=== PATIENT | male | born 1975 | race Caucasian/White ===

== ENCOUNTER → 2018-11-19 | Outpatient (CLI) | payer BC | LOC: FIMAGING 14:44 | PROVIDERS: ATTEND Orthopaedic Surgery | DX: M19.011 Primary osteoarthritis, right shoulder (principal); S43.401A Unspecified sprain of right shoulder joint, initial encounter ==

== ENCOUNTER 2019-01-27 05:57 | Inpatient (IN) | payer BC ==
[~2019-01-27 05:57] MED LIST: LIDOCAINE 1% 2 ML INJ ID PRN; LR 1,000 ML IV ONE; LR 1,000 ML IV SCH; ceFAZolin 2 GM/DEXTROSE 100 ML IV ONE
--- NOTE | 2019-01-27 06:07 | PDHPUP ---
History & Physical Update H&P update statement: This history and physical update is based on an assessment of the patient which was completed after admission or registration (within 24 hours), but prior to the surgery/procedure. H&P update: no change in patient's condition since H&P completed
[2019-01-27] MEDS ORDERED: POLYMYXIN B SULFATE 500,000 UNIT/10 ML SYR IRR ONE (06:36)
[2019-01-27] MEDS ORDERED: BUPIVACAINE 0.5% 30 ML SDV ONE (06:36)
[2019-01-27 06:44] LABS: INR 1.3 (0.83-1.16); PROTIME(PATIENT) 15.6 SEC (12.0-15.0)
[2019-01-27] MEDS ORDERED: MIDAZOLAM 2 MG/2 ML VIAL IVP ONE (06:48)
--- NOTE | 2019-01-27 06:48 | PDANEPAE ---
ANE History of Present Illness Shoulder OA ANE Past Medical History - Cardiovascular History Hx Hypertension: Yes Hx Arrhythmias: No Hx Chest Pain: No Hx Coronary Artery / Peripheral Vascular Disease: No Hx CHF / Valvular Disease: No Hx Palpitations: No Cardiovascular History Comment: HAD A RECENT BP ELEVATION - BEING WORKED UP BY DR DIAZ F/U NEXT WEEK TO POSSIBLY START MEDICATION BASED ON BP LOG - Pulmonary History Hx COPD: No Hx Asthma/Reactive Airway Disease: No Hx Recent Upper Respiratory Infection: No Hx Oxygen in Use at Home: No Hx Sleep Apnea: No Sleep Apnea Screening Result - Last Documented: Negative Pulmonary History Comment: CHILDHOOD ASTHMA - Neurologic History Hx Cerebrovascular Accident: No Hx Seizures: No Hx Dementia: No - Endocrine History Hx Diabetes: No - Renal History Hx Renal Disorders: No - Liver History Hx Hepatic Disorders: No - Neurological & Psychiatric Hx Hx Neurological and Psychiatric Disorders: No - Cancer History Hx Cancer: No - Congenital Disorder History Hx Congenital Disorders: No - GI History Hx Gastrointestinal Disorders: No - Other Health History Other Health History: NEG - Chronic Pain History Chronic Pain: Yes (R SHOULDER) - Surgical History Prior Surgeries: NEG ANE Review of Systems Review of Systems: - Exercise capacity METS (RN): 5 METS ANE Patient History - Allergies Allergies/Adverse Reactions: lisinopril Allergy (Verified 01/23/19 17:33) face swelling - Home Medications Home medications: home medication list seen and reviewed Home Medications: Ibuprofen [Motrin (*)] 200 mg PO Q8HRS PRN 01/10/19 [Last Taken 01/20/19] Indomethacin [Indocin 25 mg (*)] 25 mg PO DAILY PRN 01/10/19 [Last Taken ] Metoprolol Succinate 01/27/19 [Last Taken 01/26/19 09:00] - NPO status NPO Since - Liquids (Date): 01/27/19 NPO Since - Liquids (Time): 02:00 NPO Since - Solids (Date): 01/26/19 NPO Since - Solids (Time): 18:00 - Anes Hx Anes Hx: no prior problems (No prior GA) - Smoking Hx Smoking Status: Former smoker - Family Anes Hx Family Hx Anesthesia Complications: NKA ANE Labs/Vital Signs - Vital Signs Blood Pressure: 146/111 Heart Rate: 75 Respiratory Rate: 13 O2 Sat (%): 92 Height: 195.58 cm Weight: 111.13 kg ANE Physical Exam - Airway Neck exam: FROM Mallampati Score: Class 2 Mouth exam: normal dental/mouth exam - Pulmonary Pulmonary: no respiratory distress - Cardiovascular Cardiovascular: regular rate and rhythym - ASA Status ASA Status: II ANE Anesthesia Plan Anesthesia Plan: GA w LMA Regional Anesthesia: single shot NB, interscalene BP NB
[2019-01-27] MEDS ORDERED: MIDAZOLAM 2 MG/2 ML VIAL ONE (06:53)
[2019-01-27] MEDS ORDERED: fentaNYL 100 MCG/2 ML INJ ONE (07:03)
[2019-01-27] MEDS ORDERED: PROPOFOL 200 MG/20 ML VIAL ONE (07:03)
[2019-01-27] MEDS ORDERED: BUPIVACAINE/EPI 0.5% 30 ML SDV ONE (07:12)
[2019-01-27] MEDS ORDERED: DEXAMETHASONE 4 MG/ML VIAL ONE ×2 (07:33)
[2019-01-27] MEDS ORDERED: ONDANSETRON 4 MG/2 ML VIAL ONE (07:33)
[2019-01-27] MEDS ORDERED: ONDANSETRON 4 MG/2 ML VIAL IVP PRN ×2 (07:46→08:16)
[2019-01-27] MEDS ORDERED: NALOXONE HCL 0.4 MG/ML INJ IVP PRN (07:46)
[2019-01-27] MEDS ORDERED: PROMETHAZINE HCL 25 MG/ML INJ IVP PRN ×2 (07:46→08:16)
[2019-01-27] MEDS ORDERED: fentaNYL 100 MCG/2 ML INJ IVP PRN (07:46)
[2019-01-27] MEDS ORDERED: HYDROmorphONE/DILAUDID 1 MG/ML INJ IVP PRN (07:46)
[2019-01-27] MEDS ORDERED: LIDOCAINE 2% 2 ML INJ ONE (08:01)
[2019-01-27] MEDS ORDERED: GLYCOPYRROLATE 0.2 MG/1 ML VIAL ONE (08:01)
[2019-01-27] MEDS ORDERED: ONDANSETRON DISINTEGRATING 4 MG TAB PO PRN (08:16)
[2019-01-27] MEDS ORDERED: LACTULOSE 20 GM/30 ML UDCUP PO PRN (08:16)
[2019-01-27] MEDS ORDERED: diphenhydrAMINE 25 MG CAP PO PRN (08:16)
[2019-01-27] MEDS ORDERED: METOCLOPRAMIDE 10 MG/2 ML VIAL IVP PRN (08:16)
[2019-01-27] MEDS ORDERED: POLYETHYLENE GLYCOL 3350 17 GM PKT PO PRN (08:16)
[2019-01-27] MEDS ORDERED: PROMETHAZINE HCL 25 MG SUPPR PR PRN (08:16)
[2019-01-27] MEDS ORDERED: MAGNESIUM HYDROXIDE 30 ML UDCUP PO PRN (08:16)
[2019-01-27] MEDS ORDERED: TEMAZEPAM 15 MG CAP PO PRN (08:16)
[2019-01-27] MEDS ORDERED: BISACODYL 10 MG SUPP PR PRN (08:16)
[2019-01-27] MEDS ORDERED: oxyCODONE IR 5 MG TAB PO PRN (08:16)
[2019-01-27] MEDS ORDERED: DIPHENOXYLATE/ATROPINE LOMOTIL 1 TAB PO PRN (08:16)
[2019-01-27] MEDS ORDERED: CYCLOBENZAPRINE 10 MG TAB PO PRN (08:16)
--- NOTE | 2019-01-27 08:16 | POSTOPPROG ---
Post Op Note Date of Operation: 01/27/19 Surgeon: Jimmie Brand Deputy Head: Dori Anesthesiologist: Scar Anesthesia: GET(General Endotracheal) Pre-op Diagnosis: Right shoulder OA Post-op Diagnosis: Right shoulder OA Indication: Right shoulder OA Procedure: Right total shoulder arthroplasty Findings: Right shoulder OA Inf/Abcess present in the surg proc area at time of surgery?: No Depth: Deep Incisional (Fascial) EBL: 100-500
[2019-01-27] MEDS ORDERED: LR 1,000 ML IV SCH (08:30)
--- NOTE | 2019-01-27 08:54 | POSTANESTH ---
Post Anesthetic Evaluation Cardiovascular Status: Similar to Pre-Op Cond Respiratory Status: Similar to Pre-op Cond. Level of Consciousness/Mental Status: Alert and Oriented Pain Control: Adequate, Prn Tx Ordered Nausea/Vomiting Control: Adequate, Prn Tx Ordered Complications Possibly Related to Anesthesia: None Noted (Zero pain)
[2019-01-27] MEDS ORDERED: SENNOSIDES/DOCUSATE SODIUM TAB PO SCH (09:00)
--- NOTE | 2019-01-27 09:33 | PDMN ---
Medical Necessity Medical necessity: Pt meets inpt criteria per MD order and [facility] [place] [id number]er Arthroplasty, 1 day, MCR IP only list. 43 y/o w/R shoulder OA admitted for R total shoulder arthroplasty and post-op care, IP Approved Auth # [id number].
[2019-01-27] MEDS ORDERED: METOPROLOL SUCCINATE XR 50 MG TAB PO SCH (12:15)
[2019-01-27 13:26] VITALS: BP 135/86
--- NOTE | 2019-01-27 13:45 | SOAPPROG ---
SOAP Progress Note Assessment/Plan: Assessment: s/p tsa Plan:dc home stable reviewed pain control measures dvt precautions f/u at two weeks seek attn for increasing complaints 01/27/19 13:44 Subjective: no pain Objective: Vital Signs Temp Pulse Resp BP Pulse Ox 36.6 C 79 16 135/86 H 90 L 01/27/19 13:25 01/27/19 13:25 01/27/19 13:25 01/27/19 13:25 01/27/19 13:25 01/26/19 01/27/19 01/28/19 05:59 05:59 05:59 Intake Total 790 Output Total 10 Balance 780 PT 15.6 SEC (12.0-15.0) H 01/27/19 06:25 INR 1.30 (0.83-1.16) H 01/27/19 06:25 dressing intact intact pfd,f,ehl toes warm and pink maggie teds no sensation r/u/m secondary to block ICD10 Worksheet Patient Problems: Problems Problem Status Onset Primary osteoarthritis, right shoulder Acute
--- NOTE | 2019-01-27 13:54 | PDDCSUM ---
Discharge Summary Discharge Summary: ADMIT DIAGNOSIS: Right shoulder degenerative joint disease DISCHARGE DIAGNOSIS: Right shoulder degenerative joint disease NAME OF PROCEDURE: Right total shoulder arthroplasty HPI: The patient is a 43 year old male who has end-stage arthritis of his right shoulder. Clinical and radiographic features are consistent with this. Patient has failed attempts at conservative management, therefore, recommended operative right total shoulder replacement. HOSPITAL COURSE: Patient was admitted to the hospital floor after uncomplicated right shoulder arthroplasty. Patient tolerated the procedure well and had no additional complications. At the time of discharge, patient is tolerating an oral diet, pain is well controlled on oral medications, and is voiding without difficulty. Dressing is clean, dry and intact. There is no swelling or tenderness of the right upper arm and forearm. Patient has intact flexion and extension of the right wrist. Radial, medial and ulnar nerve function intact. Palpable radial pulse. Capillary refill < 2 seconds in all fingers. X-rays demonstrate anatomic positioning with no fracture or lucency. DISCHARGE ACTIVITY: Patient is NWBing on the right upper extremity and can perform pendulums only at the right shoulder. He can perform ROM at the right elbow, wrist and fingers; he is allowed to type on a keyboard. He will wear the sling at all times except for when he performs pendulums or elbow ROM. Patient was instructed to keep dressing clean, dry and intact. Patient is to seek attention for increasing redness, swelling, drainage or discharge. DISCHARGE MEDICATIONS: oxycodone 5 mg 1-2 every 3 hours prn pain, cyclobenzaprine 10 mg PO every 8 hours prn spasm, Zofran 4 mg orally disintegrating tablet every 8 hours prn nausea. He may also continue to take OTC Tylenol for pain. FOLLOW-UP: Follow up in 2 weeks. Again, patient is to seek attention for increasing redness, swelling, drainage or discharge.
[2019-01-27] MEDS ORDERED: ACETAMINOPHEN 325 MG TAB PO SCH (14:00)
[2019-01-27] MEDS ORDERED: ceFAZolin 2 GM/DEXTROSE 100 ML IV SCH (15:00)
[2019-01-27] MEDS ORDERED: FAMOTIDINE 20 MG TAB PO SCH (21:00)
--- NOTE | 2019-01-30 07:17 | GOP ---
[f rep st] OPERATIVE REPORT DATE OF OPERATION: 01/27/2019 SURGEON: Jimmie Brand MD TRACK PRODUCTION ENGINEER: Marino Meadows, EQUIPMENT PLANNER, [facility], who was a medical necessity for the entirety of the case. PREOPERATIVE DIAGNOSIS: Right shoulder degenerative joint disease. POSTOPERATIVE DIAGNOSIS: Right shoulder degenerative joint disease. PROCEDURE PERFORMED: Right total shoulder arthroplasty. FINDINGS: SPECIMENS: To Pathology: The humeral head. INDICATIONS: The patient is a 43-year-old gentleman with end-stage arthritis to his right shoulder. Clinical and radiographic features are consistent with this. He has failed all attempts at conserv ative management. I have, therefore, recommended operative intervention. I have outlined the surgic al procedure, risks, benefits, and alternatives at length. He wished to proceed. Written consent wa s signed and placed in the patient's chart. DESCRIPTION OF PROCEDURE: The patient was identified in the preanesthesia area. The right shoulder clearly demarcated as the operative site with indelible marker. He was given 2 g of Ancef intravenou sly en route to the operative suite. In the OR, interscalene block was placed followed by general en dotracheal anesthesia. He was positioned in the beach chair position. All bony prominences were wel l padded, including the use of a neurological preschool head teacher. Appropriate time-out procedure was niles d out. Attention was turned to the right shoulder. Standard anterior deltopectoral incision was made. Thick subcutaneous flaps were elevated. The ceph alic vein was identified and retracted medially. The deltoid elevated laterally off the anterior maryam face of the shoulder. The subscapularis and capsule were elevated in a single guitar player the anterior surface of the lesser tuberosity and into the rotator cuff interval. This was tagged for later repa ir with a #1 Ethibond suture. The shoulder was then delivered with release of the capsule. The prox imal cut to the head was then made with oscillating saw and the bone fragment withdrawn. The inferior osteophyte removed. Retractors were then placed allowing visualization of the underlying glenoid. The remnants of the glenoid labrum were sharply excised. A central pin was then placed. Reaming wit h a 52 mm reamer was carried out. The central hole was then drilled. A superior and 2 inferior hole s were drilled using the appropriate template and an [place] Peg Glenoid was then placed, impacted, co nfirmed to be fully seated. Attention was then turned to the proximal humerus. The proximal canal w as opened, serial broaching carried out to a size 12 stem. The lateral fins were cut. A trial stem wa s placed with a 56 mm concentric head. This allowed full range of motion with passive anterior-train driver ior subluxation of approximately 30% to 40%. A trial stem was withdrawn and the shoulder was copious ly irrigated and the stem was assembled on the back table. This was impacted, confirmed to be fully seated. The shoulder was once again irrigated, taken through a full range of motion, was stable and appropriate. The subscapularis was then repaired using #1 Ethibond suture into the rotator cuff inte rval. The tissues were injected with 0.5% Marcaine 20 cc and the subcutaneous tissue closed using 2- 0 Monocryl and the skin stapled. A sterile compressive dressing was applied followed by a Cryo/Cuff and shoulder immobilizer. The patient was awakened, taken to recovery in good, stable condition. TOTAL TOURNIQUET TIME: None. COMPLICATIONS: None. IMPLANTS: [employer] AP size 12 stem, 56 mm concentric head, 52 mm [place] Peg Glenoid. DISPOSITION: To the recovery room, then the floor. He will follow standard total shoulder recovery. /[id number]/MODL
== END 2019-01-27 15:45 | disposition home or self-care (01) | DRG 483 ==
LOC: F3N 05:57
PROVIDERS: ADMIT Orthopaedic Surgery; ATTEND Orthopaedic Surgery
PROC: 0RRJ0JZ Replacement of Right Shoulder Joint with Synthetic Substitute, Open Approach (ICD-10-PCS; principal; 2019-01-27 07:15)
DX: M19.011 Primary osteoarthritis, right shoulder (principal); I10 Essential (primary) hypertension; Z87.891 Personal history of nicotine dependence
CPT/HCPCS: 97161-GP; 97165-GO; J0690; J1100; J2250; J2405; J2704; J3010

== ENCOUNTER → 2019-02-10 | Outpatient (CLI) | payer BC | LOC: BMCIMAGING 08:24 ==